=== PATIENT | male | born 1970 | race Caucasian/White ===

== ENCOUNTER 2018-06-12 04:14 | Emergency (ER) | payer SELFPAY ==
[~2018-06-12] VITALS: Ht 167.6 cm; Wt 72.6 kg
[~2018-06-12 04:14] MED LIST: CHOL20007 PO; CLON0.3T PO; ESCI20TA PO; LEVE500T22 PO; LOSA-46 PO; NIFE60TA59 PO
[2018-06-12 04:20] VITALS: BP 120/80
== END 2018-06-12 07:45 | disposition left against medical advice (07) ==
LOC: EDBD 04:14 → ER 04:16
DX: R07.9 Chest pain, unspecified (principal); Z53.21 Procedure and treatment not carried out due to patient leaving prior to being seen by health care provider
CPT/HCPCS: 71045; 93005

== ENCOUNTER 2018-06-25 07:27 | Inpatient (IN) | payer SELFPAY ==
[~2018-06-25] VITALS: Ht 167.6 cm; Wt 73.5 kg
[2018-06-25 08:02] LABS: Basophils # (auto) 0.1 uL; Basophils % (auto) 0.4 % (0.0-2.0); Eosinophils # (auto) 0.2 uL; Eosinophils % (auto) 1.2 % (0.0-7.0); Hematocrit 32.2 % (41.0-53.0); Hemoglobin 11.1 g/dL (13.5-17.5); Lymphocytes # (auto) 0.6 uL; Lymphocytes % (auto) 3.9 % (10.0-50.0); Mean Corpuscular Hemoglobin 29.5 pg (28.0-32.0); Mean Corpuscular Hgb Conc. 34.4 g/dL (32.0-36.0); Mean Corpuscular Volume 85.9 fL (80.0-100.0); Monocytes # (auto) 0.6 uL; Monocytes % (auto) 3.4 % (0.0-12.0); Neutrophils # (auto) 14.9 uL; Neutrophils % (auto) 91.1 % (37.0-80.0); Platelet Count (auto) 358 10^3/uL (140-450); Red Blood Cells 3.75 10^6/uL (4.5-5.90); Red Cell Distribution Width 14.4 % (11.8-14.3); White Blood Cell 16.4 10^3/uL (4.4-10.8)
[2018-06-25] MEDS ORDERED: SODIUM CHLORIDE 0.9% 1,000 ML IV ONE (08:10)
[2018-06-25] MEDS ORDERED: ASPirin 81 mg TAB PO ONE (08:15)
[2018-06-25 08:23] LABS: Albumin 3.2 g/dL (3.4-5.0); Calcium 8.8 mg/dL (8.5-10.1); Magnesium 1.9 mg/dL (1.6-2.6); Potassium 3.4 mmol/L (3.5-5.1)
[2018-06-25 08:28] LABS: BUN/Creatinine Ratio 14.7; Bilirubin, Total 1.3 mg/dL (0.2-1.0); Total Protein 7.2 g/dL (6.4-8.2)
[2018-06-25] MEDS ORDERED: cloNIDine HCL 0.1 MG TAB PO ONE (08:30)
[2018-06-25 08:59] LABS: INR 1.01 (0.9-1.15); Partial Thromboplastin Time 29.2 sec (23.78-33.04); Prothrombin Time 10.8 sec (9.27-12.13)
[2018-06-25] MEDS ORDERED: POTASSIUM EFFERVESENT TAB 25 MEQ PO ONE (09:00)
[2018-06-25] MEDS ORDERED: FUROSEMIDE 40 MG/4 ML VIAL IV ONE (10:00)
[2018-06-25] MEDS ORDERED: LABETALOL HCL 5 MG/ML ML 20ML VIAL IV ONE (10:00)
[2018-06-25] MEDS ORDERED: hydrALAZINE HCL 20 MG/ML VL ONE (10:11)
[2018-06-25] MEDS ORDERED: hydrALAZINE HCL 20 MG/ML VL IV ONE ×2 (10:15→13:45)
[2018-06-25 10:53] LABS: Urine Bacteria FEW /hpf (None Seen); Urine Blood TRACE /uL (Negative); Urine WBC 1 /hpf (0 - 3)
[2018-06-25] MEDS ORDERED: methylPREDNISolone SOD SUCC 125 MG/2 ML VL IV ONE (11:00)
[2018-06-25] MEDS ORDERED: cefTRIAXone 1GM/50ML D5W 50 ML IV SCH (11:00)
[2018-06-25] MEDS: NICOTINE 21MG/24 HR TOPICAL PATCH TD SCH (11:00)
[2018-06-25] MEDS ORDERED: NITROGLYCERIN 0.4MG/HR TOPICAL PATCH TD SCH (11:00)
[2018-06-25] MEDS ORDERED: NITROGLYCERIN 0.4 MG SL TAB SL PRN (11:00)
[2018-06-25] MEDS ORDERED: MORPHINE SULFATE 4 MG/ML SYR/VIAL IV PRN ×2 (11:00→11:15)
[2018-06-25] MEDS: FUROSEMIDE 40 MG/4 ML VIAL IV SCH (11:00)
[2018-06-25] MEDS ORDERED: LOSARTAN POTASSIUM 50 MG TAB PO ONE (11:15)
[2018-06-25] MEDS ORDERED: ONDANSETRON HCL 4 MG/2 ML VIAL IV PRN (11:15)
[2018-06-25] MEDS ORDERED: ALPRAZolam 0.25 MG TAB PO PRN (11:15)
[2018-06-25] MEDS ORDERED: METOPROLOL TARTRATE 25 MG TAB PO ONE (11:15)
[2018-06-25] MEDS ORDERED: NICOTINE 21MG/24 HR TOPICAL PATCH TD ONE (11:15)
[2018-06-25] MEDS ORDERED: LEVETIRACETAM 500 MG TAB PO ONE (11:15)
[2018-06-25] MEDS: ASPirin 81 mg TAB PO ONE ×2 (11:32→11:34)
[2018-06-25] MEDS: IPRATROPIUM BROM 0.5 MG/2.5ML INH SOL NEB SCH ×2 (11:49→18:34)
[2018-06-25] MEDS: ALBUTEROL SULF 2.5 MG/0.5ML(0.5%) NEB SOLN NEB SCH ×2 (11:49→18:34)
[2018-06-25] MEDS: AZITHROMYCIN 500MG/ 250ML 250 ML IV SCH (12:04)
[2018-06-25] MEDS: amLODIPine BESYLATE 5 MG TAB PO SCH (14:02)
[2018-06-25] MEDS: cloNIDine HCL 0.1 MG TAB PO SCH ×3 (14:02→21:35)
[2018-06-25] MEDS: hydrALAZINE HCL 20 MG/ML VL IV SCH ×2 (14:02→18:09)
[2018-06-25] MEDS ORDERED: ENOXAPARIN SOD 60 MG/0.6 ML SYRINGE SC ONE (15:45)
[2018-06-25] MEDS: HYDROcodone-ACET 5/325MG TAB PO PRN (16:33)
[2018-06-25 17:10] VITALS: BP 162/112
[2018-06-25] MEDS: BUDESONIDE (INHALATION) 0.5 MG/2 ML NEB NEB SCH (18:34)
[2018-06-25 20:25] VITALS: BP 164/99
--- NOTE | 2018-06-25 20:25 | NUR ---
Telemetry admit from ER NICOLAS EVANS admitted to Telemetry unit after SBAR received. Patient oriented to DELVIN GODWIN RN primary RN, unit, room, bed, and unit policies regarding patient care and visiting hours. Patient now on continuous telemetry monitoring, tele box # 7 and telemetry reading on arrival to unit is SR-ST BBB. Patient placed on bedside oxygen, weighed by bedscale and encouraged to call if they need something. All questions and concerns addressed, patient verbalized understanding. Note:
[2018-06-25] MEDS: LEVETIRACETAM 500 MG TAB PO SCH (21:34)
[2018-06-25] MEDS: METOPROLOL TARTRATE 25 MG TAB PO SCH (21:34)
[2018-06-25 22:16] VITALS: BP 164/99
[2018-06-26] MEDS: hydrALAZINE HCL 20 MG/ML VL IV SCH ×4 (02:00→13:09)
[2018-06-26 05:00] VITALS: BP 155/63
[2018-06-26] MEDS: cloNIDine HCL 0.1 MG TAB PO SCH ×3 (05:25→21:46)
[2018-06-26] MEDS: HYDROcodone-ACET 5/325MG TAB PO PRN ×3 (05:46→21:46)
[2018-06-26] MEDS: IPRATROPIUM BROM 0.5 MG/2.5ML INH SOL NEB SCH ×5 (06:25→19:48)
[2018-06-26] MEDS: BUDESONIDE (INHALATION) 0.5 MG/2 ML NEB NEB SCH ×2 (06:25→19:48)
[2018-06-26] MEDS: ALBUTEROL SULF 2.5 MG/0.5ML(0.5%) NEB SOLN NEB SCH ×5 (06:25→19:48)
[2018-06-26 06:30] LABS: Basophils # (auto) 0 uL; Basophils % (auto) 0.2 % (0.0-2.0); Eosinophils # (auto) 0 uL; Hematocrit 32.2 % (41.0-53.0); Hemoglobin 10.9 g/dL (13.5-17.5); Lymphocytes # (auto) 1.1 uL; Mean Corpuscular Hemoglobin 29.1 pg (28.0-32.0); Mean Corpuscular Hgb Conc. 33.8 g/dL (32.0-36.0); Mean Corpuscular Volume 86.2 fL (80.0-100.0); Monocytes # (auto) 0.5 uL; Monocytes % (auto) 3.5 % (0.0-12.0); Neutrophils # (auto) 12.5 uL; Neutrophils % (auto) 88.3 % (37.0-80.0); Platelet Count (auto) 346 10^3/uL (140-450); Red Blood Cells 3.74 10^6/uL (4.5-5.90); Red Cell Distribution Width 14.5 % (11.8-14.3); White Blood Cell 14.2 10^3/uL (4.4-10.8)
[2018-06-26 06:47] LABS: Calcium 8.4 mg/dL (8.5-10.1); Potassium 3.4 mmol/L (3.5-5.1)
--- NOTE | 2018-06-26 07:40 | NUR ---
Patient walking from the bathroom going back to bed.
[2018-06-26 08:11] VITALS: BP 153/90
--- NOTE | 2018-06-26 08:15 | NUR ---
Patient stated he wants to walk on the hallway. Patient is an active smoker as per report. Patient has Nicoderm patch on the left upper arm. Asked the patient if he's going downstairs to smoke. Patient denies he's going downstairs to smoke, stated he will walk on the hallway only and will go back to his room.
[2018-06-26] MEDS: AZITHROMYCIN 500MG/ 250ML 250 ML IV SCH (09:34)
[2018-06-26] MEDS: FUROSEMIDE 40 MG/4 ML VIAL IV SCH (09:37)
[2018-06-26] MEDS: NICOTINE 21MG/24 HR TOPICAL PATCH TD SCH (09:37)
[2018-06-26] MEDS: ASPirin 81 mg TAB PO SCH (09:38)
[2018-06-26] MEDS: LEVETIRACETAM 500 MG TAB PO SCH ×2 (09:39→21:45)
[2018-06-26] MEDS: amLODIPine BESYLATE 5 MG TAB PO SCH (09:39)
[2018-06-26] MEDS: METOPROLOL TARTRATE 25 MG TAB PO SCH ×2 (09:39→21:46)
[2018-06-26] MEDS ORDERED: ESCITALOPRAM OXALATE 20 MG PO SCH (10:00)
[2018-06-26] MEDS ORDERED: LOSARTAN POTASSIUM 50 MG TAB PO SCH ×2 (10:00)
[2018-06-26 11:51] VITALS: BP 141/81
--- NOTE | 2018-06-26 12:04 | NUR ---
Patient stated he has headache. [place] not due at this time. No orders for Tylenol. Will call the Hospitalist for orders.
--- NOTE | 2018-06-26 12:05 | NUR ---
Paged Dr. Dennis. Waiting for MD to call back.
[2018-06-26] MEDS: cefTRIAXone 1GM/50ML D5W 50 ML IV SCH (12:08)
--- NOTE | 2018-06-26 12:57 | NUR ---
Paged Dr. Dennis again.
--- NOTE | 2018-06-26 13:00 | NUR ---
Dr. Dennis called back. made aware patient complained of headache but there's no order for Tylenol; [place] 5/325 PO Q8 and not due at this time. Dr. Dennis said she will have to see the patient first. No new orders given.
[2018-06-26] MEDS ORDERED: NIFEdipine ER 30 MG TAB PO ONE (13:15)
--- NOTE | 2018-06-26 13:55 | NUR ---
Patient stated his headache at 6/10 pain level at this time. [place] 5/325 PO given as ordered.
[2018-06-26] MEDS: hydrALAZINE HCL 25 MG TAB PO SCH ×2 (14:00→21:45)
--- NOTE | 2018-06-26 14:10 | NUR ---
POM endorsed to Pharmacy.
[2018-06-26 16:59] VITALS: BP 168/104
--- NOTE | 2018-06-26 19:15 | NUR ---
Opening Shift Note Received report from Alexia BETTS. Assumed care of patient, awake and alert. No S/S of distress/SOB or pain. Instructed on POC and to call for assist PRN, will continue to monitor for changes Q1hr and PRN.
[2018-06-26 20:00] VITALS: BP 160/97
[2018-06-26 22:00] VITALS: BP 160/97
--- NOTE | 2018-06-27 01:53 | NUR ---
Rounds Patient is sleeping at this time, no distress or pain, will continue care.
[2018-06-27 04:58] LABS: Basophils # (auto) 0.1 uL; Basophils % (auto) 0.7 % (0.0-2.0); Eosinophils # (auto) 0 uL; Eosinophils % (auto) 0.3 % (0.0-7.0); Hematocrit 32.9 % (41.0-53.0); Hemoglobin 11.2 g/dL (13.5-17.5); Lymphocytes # (auto) 1.7 uL; Lymphocytes % (auto) 17.4 % (10.0-50.0); Mean Corpuscular Hemoglobin 29.3 pg (28.0-32.0); Mean Corpuscular Hgb Conc. 33.9 g/dL (32.0-36.0); Mean Corpuscular Volume 86.6 fL (80.0-100.0); Monocytes # (auto) 0.5 uL; Monocytes % (auto) 4.7 % (0.0-12.0); Neutrophils # (auto) 7.6 uL; Neutrophils % (auto) 76.9 % (37.0-80.0); Platelet Count (auto) 391 10^3/uL (140-450); Red Cell Distribution Width 14.6 % (11.8-14.3); White Blood Cell 9.9 10^3/uL (4.4-10.8)
[2018-06-27 05:00] VITALS: BP 164/114
[2018-06-27 05:15] LABS: BUN/Creatinine Ratio 14.3; Magnesium 1.8 mg/dL (1.6-2.6); Potassium 3.1 mmol/L (3.5-5.1)
[2018-06-27] MEDS: cloNIDine HCL 0.1 MG TAB PO SCH ×2 (05:48→14:40)
[2018-06-27] MEDS: hydrALAZINE HCL 25 MG TAB PO SCH ×2 (05:48→14:39)
[2018-06-27] MEDS: ALBUTEROL SULF 2.5 MG/0.5ML(0.5%) NEB SOLN NEB SCH ×3 (07:09→14:43)
[2018-06-27] MEDS: BUDESONIDE (INHALATION) 0.5 MG/2 ML NEB NEB SCH (07:09)
[2018-06-27] MEDS: IPRATROPIUM BROM 0.5 MG/2.5ML INH SOL NEB SCH ×3 (07:09→14:43)
--- NOTE | 2018-06-27 07:30 | NUR ---
Opening Shift Note Assuming care of patient. Patient is resting in bed. Patient shows no signs or symptoms of distress. Patient in bed with bed locked and lowered with side rails up x2. Instructed patient on the plan of care and to call for assistance as needed. Will continue to monitor. Call light within reach.
[2018-06-27 08:00] VITALS: BP 162/106
--- NOTE | 2018-06-27 08:05 | NUR ---
Re: Off Unit Patient is being taken off unit at this time for VQ scan. Awaiting return.
--- NOTE | 2018-06-27 09:40 | NUR ---
Re: Back on Unit Patient is back on unit at this time.
[2018-06-27] MEDS ORDERED: NIFEdipine ER 30 MG TAB PO SCH (10:00)
[2018-06-27] MEDS ORDERED: CITALOPRAM HYDROBR 20 MG TAB PO SCH (10:00)
[2018-06-27] MEDS: NICOTINE 21MG/24 HR TOPICAL PATCH TD SCH (10:45)
[2018-06-27] MEDS: ASPirin 81 mg TAB PO SCH (10:45)
[2018-06-27] MEDS: LEVETIRACETAM 500 MG TAB PO SCH (10:45)
--- NOTE | 2018-06-27 10:52 | NUR ---
Re: Nephro Consult Spoke to Dr. Worrell at this time. Dr. Worrell states that he does not take new patients at our hospital right now. Lakeshia, Woven Paper Hat Mender, is aware.
--- NOTE | 2018-06-27 10:55 | NUR ---
Re: Nephro Consult Lakeshia, Assistant Center Manager, has called the nephro consult in again to another doctor at this time. Awaiting callback.
[2018-06-27] MEDS ORDERED: POTASSIUM CHL 20 Meq TABLET PO ONE (11:45)
[2018-06-27] MEDS ORDERED: MAGNESIUM SULFATE 1GM/100ML 100 ML IV ONE (11:45)
[2018-06-27] MEDS ORDERED: CARVEDILOL 12.5 MG TAB PO ONE (11:45)
[2018-06-27] MEDS ORDERED: LABETALOL HCL 5 MG/ML ML 20ML VIAL IV PRN (11:45)
[2018-06-27 12:00] VITALS: BP 182/119
--- NOTE | 2018-06-27 12:20 | NUR ---
IV insertion IV access obtained, via clean sterile technique by inserting 22 gauge catheter at back of left forearm. IV secured properly. No trauma to site. Patient tolerated well.
--- NOTE | 2018-06-27 12:30 | NUR ---
Re: Nephro Consult Dr. Parra called at this time. Discussed plan of care with this RN and gave orders. Orders to be put in and executed.
[2018-06-27] MEDS: cefTRIAXone 1GM/50ML D5W 50 ML IV SCH (13:30)
[2018-06-27 14:11] LABS: Urine Bacteria NONE SEEN /hpf (None Seen); Urine Blood TRACE /uL (Negative); Urine WBC 1 /hpf (0 - 3)
[2018-06-27 14:21] LABS: Alcohol, Urine < 3.0 mg/dL (0-5); Amphetamine Screen, Urine NEGATIVE (NEGATIVE); Barbiturate Scree,Urine NEGATIVE (NEGATIVE); Benzodiazephine Screen, Urine NEGATIVE (NEGATIVE); Cannabinoid Screen, Urine POSITIVE (NEGATIVE); Cocaine Screen, Urine NEGATIVE (NEGATIVE); Opiate Scree,Urine NEGATIVE (NEGATIVE); Phencyclidine Screen, Urine NEGATIVE (NEGATIVE)
[2018-06-27] MEDS: FUROSEMIDE 40 MG/4 ML VIAL IV SCH (14:30)
[2018-06-27] MEDS: AZITHROMYCIN 500MG/ 250ML 250 ML IV SCH (14:31)
[2018-06-27 17:00] VITALS: BP 126/86
--- NOTE | 2018-06-27 17:18 | NUR ---
Patient is requesting to go home at this time. Dr. Dennis is unable to be paged at this time.
--- NOTE | 2018-06-27 18:27 | NUR ---
Re: ANDREW Patient is going home against medical advice at this time. Patient had a family emergency and wants to be home with his family.
[2018-06-27] MEDS ORDERED: CARVEDILOL 12.5 MG TAB PO SCH (22:00)
[2018-06-28] MEDS ORDERED: amLODIPine BESYLATE 5 MG TAB PO SCH (10:00)
== END 2018-06-27 19:07 | disposition left against medical advice (07) | DRG 871 ==
LOC: ER 07:27 → OVERFLOW 11:01 → TELE-WESTW 20:23
PROVIDERS: ADMIT Nurse Practitioner Acute Care; ATTEND Internal Medicine
DX: A41.9 Sepsis, unspecified organism (principal); I50.43 Acute on chronic combined systolic (congestive) and diastolic (congestive) heart failure; J96.00 Acute respiratory failure, unspecified whether with hypoxia or hypercapnia; J69.0 Pneumonitis due to inhalation of food and vomit; I13.0 Hypertensive heart and chronic kidney disease with heart failure and stage 1 through stage 4 chronic kidney disease, or unspecified chronic kidney disease; E44.1 Mild protein-calorie malnutrition; J44.0 Chronic obstructive pulmonary disease with (acute) lower respiratory infection; J44.1 Chronic obstructive pulmonary disease with (acute) exacerbation; I24.9 Acute ischemic heart disease, unspecified; N18.4 Chronic kidney disease, stage 4 (severe); E11.22 Type 2 diabetes mellitus with diabetic chronic kidney disease; E11.21 Type 2 diabetes mellitus with diabetic nephropathy; E78.5 Hyperlipidemia, unspecified; E87.6 Hypokalemia; F17.210 Nicotine dependence, cigarettes, uncomplicated; G40.909 Epilepsy, unspecified, not intractable, without status epilepticus; I35.1 Nonrheumatic aortic (valve) insufficiency; Z53.21 Procedure and treatment not carried out due to patient leaving prior to being seen by health care provider; F32.9 Major depressive disorder, single episode, unspecified; F19.10 Other psychoactive substance abuse, uncomplicated; I25.10 Atherosclerotic heart disease of native coronary artery without angina pectoris; Z80.0 Family history of malignant neoplasm of digestive organs; Z80.1 Family history of malignant neoplasm of trachea, bronchus and lung; Z91.19 Patient's noncompliance with other medical treatment and regimen; Z79.899 Other long term (current) drug therapy; Z79.84 Long term (current) use of oral hypoglycemic drugs; Z90.49 Acquired absence of other specified parts of digestive tract; Z68.26 Body mass index [BMI] 26.0-26.9, adult
CPT/HCPCS: 36415; 71045; 71046; 78582; 80048; 80053; 80307; 81001; 82570; 83036; 83605; 83735; 83880; 84156; 84443; 84484; 85025; 85379; 85610; 85730; 87040; 93005; 94640; 96361; 96365; 96375; 99291; G0378; J0696; J2405

== ENCOUNTER 2018-06-30 10:26 | Inpatient (IN) | payer SELFPAY ==
[~2018-06-30] VITALS: Ht 167.6 cm; Wt 68.5 kg
[2018-06-30 11:03] LABS: Urine Bacteria FEW /hpf (None Seen); Urine Blood Negative /uL (Negative); Urine Mucus FEW (None Seen); Urine Specific Gravity 1.017 (1.001-1.035); Urine WBC 5 /hpf (0 - 3)
[2018-06-30 11:13] LABS: Alcohol, Urine < 3.0 mg/dL (0-5); Amphetamine Screen, Urine NEGATIVE (NEGATIVE); Barbiturate Scree,Urine NEGATIVE (NEGATIVE); Benzodiazephine Screen, Urine NEGATIVE (NEGATIVE); Cannabinoid Screen, Urine POSITIVE (NEGATIVE); Cocaine Screen, Urine NEGATIVE (NEGATIVE); Opiate Scree,Urine NEGATIVE (NEGATIVE); Phencyclidine Screen, Urine NEGATIVE (NEGATIVE)
[2018-06-30 11:28] LABS: Basophils # (auto) 0.1 uL; Basophils % (auto) 0.9 % (0.0-2.0); Eosinophils # (auto) 0.4 uL; Hematocrit 36.9 % (41.0-53.0); Hemoglobin 12.4 g/dL (13.5-17.5); Lymphocytes # (auto) 1.3 uL; Lymphocytes % (auto) 14.6 % (10.0-50.0); Mean Corpuscular Hemoglobin 29.3 pg (28.0-32.0); Mean Corpuscular Hgb Conc. 33.7 g/dL (32.0-36.0); Monocytes # (auto) 0.5 uL; Monocytes % (auto) 5.6 % (0.0-12.0); Neutrophils # (auto) 6.7 uL; Neutrophils % (auto) 74.9 % (37.0-80.0); Nucleated Red Blood Cells % 0.1 %; Platelet Count (auto) 443 10^3/uL (140-450); Red Blood Cells 4.24 10^6/uL (4.5-5.90); Red Cell Distribution Width 14.1 % (11.8-14.3); White Blood Cell 8.9 10^3/uL (4.4-10.8)
[2018-06-30 14:24] LABS: Albumin 3.3 g/dL (3.4-5.0); Calcium 8.8 mg/dL (8.5-10.1); Magnesium 1.8 mg/dL (1.6-2.6); Potassium 3.5 mmol/L (3.5-5.1)
[2018-06-30 14:29] LABS: BUN/Creatinine Ratio 13.3; Bilirubin, Total 0.8 mg/dL (0.2-1.0); Total Protein 7.2 g/dL (6.4-8.2)
[2018-06-30] MEDS ORDERED: ENOXAPARIN SOD 80 MG/0.8ML SYRINGE SC ONE (15:45)
[2018-06-30] MEDS ORDERED: FUROSEMIDE 40 MG/4 ML VIAL IV ONE (15:45)
[2018-06-30] MEDS ORDERED: NITROGLYCERIN 0.4 MG SL TAB SL PRN (17:00)
[2018-06-30] MEDS ORDERED: IPRATROPIUM BROM 0.5 MG/2.5ML INH SOL NEB PRN (17:00)
[2018-06-30] MEDS ORDERED: ALBUTEROL SULF 2.5 MG/0.5ML(0.5%) NEB SOLN NEB PRN (17:00)
[2018-06-30] MEDS ORDERED: MORPHINE SULF INJ 2 MG/ML SYRINGE 1ML IV PRN (17:00)
[2018-06-30] MEDS ORDERED: methylPREDNISolone SOD SUCC 125 MG/2 ML VL IV ONE (17:00)
[2018-06-30] MEDS ORDERED: ONDANSETRON HCL 4 MG/2 ML VIAL IV PRN (17:00)
[2018-06-30] MEDS ORDERED: ISOSORBIDE MONONITRATE 60 MG TAB PO ONE (17:00)
[2018-06-30] MEDS ORDERED: MORPHINE SULFATE 4 MG/ML SYR/VIAL IV PRN (17:00)
[2018-06-30] MEDS ORDERED: cloNIDine HCL 0.1 MG TAB PO ONE (17:15)
[2018-06-30] MEDS ORDERED: hydrALAZINE HCL 20 MG/ML VL IV ONE (17:15)
--- NOTE | 2018-06-30 18:40 | NUR ---
PT CHECKED FOR PRN TX. TX NOT INDICATED AT THIS TIME. NO SOB OR ACUTE DISTRESS NOTED. PT IS AWARE TO CALL IF TX IS NEED OR BECOMES SOB. HR 63 RR 18 99% ON ROOM AIR. B/S CLEAR.
[2018-06-30 20:24] VITALS: BP 152/91
[2018-06-30] MEDS: ATORVASTATIN 20 MG TAB PO SCH (21:35)
[2018-06-30] MEDS: DOCUSATE SOD 100 MG CAP PO SCH (21:35)
[2018-06-30] MEDS: LEVETIRACETAM 500 MG TAB PO SCH (21:35)
[2018-06-30] MEDS: hydrALAZINE HCL 20 MG/ML VL IV PRN (21:36)
[2018-06-30] MEDS: HYDROcodone-ACET 5/325MG TAB PO PRN (21:36)
[2018-06-30] MEDS ORDERED: NIFEdipine ER 30 MG TAB PO ONE (23:45)
[2018-06-30] MEDS ORDERED: TEMAZEPAM 15 MG CAP PO PRN (23:45)
[2018-07-01] VITALS (8 sets, daily range): BP systolic 139–169; BP diastolic 84–110
--- NOTE | 2018-07-01 00:30 | NUR ---
Telemetry admit from ER NICOLAS EVANS admitted to Telemetry unit after SBAR received. Patient oriented to Antonia Donald, primary RN, unit, room, bed, and unit policies regarding patient care and visiting hours. Patient now on continuous telemetry monitoring, tele box # 30 and telemetry reading on arrival to unit is 83 . Patient placed on bedside oxygen, weighed by bedscale and encouraged to call if they need something. All questions and concerns addressed, patient verbalized understanding. Note:
[2018-07-01] MEDS: HYDROcodone-ACET 5/325MG TAB PO PRN ×3 (03:17→21:25)
[2018-07-01 05:47] LABS: Basophils # (auto) 0 uL; Basophils % (auto) 0.2 % (0.0-2.0); Eosinophils # (auto) 0 uL; Hemoglobin 12.7 g/dL (13.5-17.5); Lymphocytes # (auto) 0.6 uL; Monocytes # (auto) 0.1 uL; Neutrophils % (auto) 93.2 % (37.0-80.0)
[2018-07-01 05:52] LABS: Lymphocytes % (auto) 5.5 % (10.0-50.0); Mean Corpuscular Hemoglobin 29.8 pg (28.0-32.0); Mean Corpuscular Hgb Conc. 35.3 g/dL (32.0-36.0); Mean Corpuscular Volume 84.7 fL (80.0-100.0); Monocytes % (auto) 1.1 % (0.0-12.0); Neutrophils # (auto) 10.1 uL; Platelet Count (auto) 474 10^3/uL (140-450); Red Blood Cells 4.26 10^6/uL (4.5-5.90); Red Cell Distribution Width 14.4 % (11.8-14.3); White Blood Cell 10.8 10^3/uL (4.4-10.8)
[2018-07-01 06:19] LABS: Calcium 8.9 mg/dL (8.5-10.1); Potassium 3.1 mmol/L (3.5-5.1)
[2018-07-01] MEDS ORDERED: cefTRIAXone 1GM/50ML D5W 50 ML IV SCH (09:00)
[2018-07-01] MEDS: LOSARTAN POTASSIUM 50 MG TAB PO SCH (09:37)
[2018-07-01] MEDS: DOCUSATE SOD 100 MG CAP PO SCH ×2 (09:37→21:24)
[2018-07-01] MEDS: ISOSORBIDE MONONITRATE 60 MG TAB PO SCH (09:38)
[2018-07-01] MEDS: LEVETIRACETAM 500 MG TAB PO SCH ×2 (09:38→21:25)
[2018-07-01] MEDS: FUROSEMIDE 20 MG TAB PO SCH (09:38)
[2018-07-01] MEDS: NIFEdipine ER 30 MG TAB PO SCH (09:41)
[2018-07-01] MEDS ORDERED: HCTZ 25 MG TAB PO SCH (10:00)
[2018-07-01] MEDS: hydrALAZINE HCL 20 MG/ML VL IV PRN (13:37)
[2018-07-01] MEDS ORDERED: POTASSIUM CHL 10 Meq TABLET PO ONE (14:00)
[2018-07-01] MEDS ORDERED: cloNIDine HCL 0.1 MG TAB PO PRN (14:00)
[2018-07-01] MEDS ORDERED: hydrALAZINE HCL 25 MG TAB PO ONE (14:00)
[2018-07-01] MEDS: CITALOPRAM HYDROBR 20 MG TAB PO SCH (14:09)
[2018-07-01] MEDS: ASPirin 81 mg TAB PO SCH (14:09)
[2018-07-01] MEDS: ACETAMINOPHEN 500 MG TAB PO PRN (15:47)
--- NOTE | 2018-07-01 15:47 | NUR ---
MEDICATED FOR HEADACHE 02/26 WITH MORPHINE ALSO GAVE TYLENOL. HE SAID HE HATED THE HOSPITAL AND IT GIVES HIM A HEADACHE.
--- NOTE | 2018-07-01 16:27 | NUR ---
DR COATES AT BEDSIDE FOR CARDIOLOGY CONSULT. WILL PLACE ORDER FOR CARDIOLITE STRESS TEST TOMORROW.
--- NOTE | 2018-07-01 19:15 | NUR ---
assumed care, pt. awake, no c/o pain, no sob.
--- NOTE | 2018-07-01 19:24 | NUR ---
PT CHECKED FOR PRN TX. PT IS RESTING COMFORTABLY WITH NO DISTRESS NOTED. B/S CLEAR. HR 92 POX 94% ON ROOM AIR. RR 20. PT AWARE TO CALL IF TX NEEDED.
[2018-07-01] MEDS: hydrALAZINE HCL 25 MG TAB PO SCH (21:24)
[2018-07-01] MEDS: ATORVASTATIN 20 MG TAB PO SCH (21:25)
[2018-07-02 05:34] VITALS: BP 144/85
[2018-07-02] MEDS: hydrALAZINE HCL 25 MG TAB PO SCH ×3 (05:47→21:18)
[2018-07-02 06:31] LABS: Calcium 8.4 mg/dL (8.5-10.1); Potassium 3.1 mmol/L (3.5-5.1)
[2018-07-02 06:33] LABS: BUN/Creatinine Ratio 14.1
--- NOTE | 2018-07-02 07:30 | NUR ---
Opening Shift Note Assumed care of patient, awake and alert. No S/S of distress/SOB or pain reported at this time. Instructed on POC and to call for assist PRN, call light within reach, IV to left AC patent and benign, will continue to monitor for changes Q1hr and PRN.
[2018-07-02 08:00] VITALS: BP 121/145
[2018-07-02] MEDS ORDERED: ADENOSINE 57 MG in GIVE UN-DILUTED 0 ML IV STA (08:22)
--- NOTE | 2018-07-02 08:34 | NUR ---
Respiratory note: ASSESSED PT FOR PRN TX PT WAS AWAKE AND ALERT NO RESP DISTRESS NOTED. HR 94%,RR 16, SPO2 98% ON ROOM AIR. BS ARE CLEAR. PT KNOWS TO HAVE RT PAGED IF TX IS NEEDED.
[2018-07-02 08:37] VITALS: BP 121/145
--- NOTE | 2018-07-02 09:05 | NUR ---
PT OFF UNIT TAKEN TO STRESS TEST, TAKEN VIA WHEELCHAIR, NO DISTRESS NOTED, CONT CARE
[2018-07-02] MEDS ORDERED: cloNIDine HCL 0.1 MG TAB ONE (10:19)
[2018-07-02] MEDS ORDERED: cloNIDine HCL 0.1 MG TAB PO ONE (10:30)
--- NOTE | 2018-07-02 11:08 | NUR ---
STRESS TEST UNABLE TO DO STRESS TEST AT THIS TIME. BLOOD PRESSURE UPON ARRIVAL TO STRESS TEST WAS 209/139 WITH A HEART RATE OF 75. DR AGUERO NOTIFIED AND VERBAL ORDER FOR CLONIDINE 0.2 PO WAS OBTAINED. PATIENT WAS MEDICATED AT 1030. AFTER 45 MIN BLOOD PRESSURE WAS STILL TOO HIGH FOR STRESS TEST. BLOOD PRESSURE 189/125 AND HEART RATE 80. PATIENT TAKEN BACK TO ROOM. STRESS TEST WILL BE ATTEMPTED TOMORROW AGAIN. RN MICHAEL NOTIFIED OF NEED FOR FULL DOSE OF BLOOD PRESSURE MEDIATIONS TO BE GIVEN IN THE MORNING PRIOR TEST. PRIMARY NURSE MICHAEL AND DR AGUERO AWARE OF PLAN OF CARE.
--- NOTE | 2018-07-02 11:15 | NUR ---
PT BACK FROM STRESS TEST/TEST NOT COMPLETED NO DISTRESS NOTED, VS 200/136, P 88, RR 16, O2 ON RA 96%, NO CURRENT C/O CP, SOB OR ANY OTHER DISCOMFORT, WILL ADMINISTER MORNING BP MEDS, CONT CARE
[2018-07-02] MEDS: POTASSIUM CHL 10 Meq TABLET PO SCH (11:23)
[2018-07-02] MEDS: LEVETIRACETAM 500 MG TAB PO SCH ×2 (11:23→21:19)
[2018-07-02] MEDS: FUROSEMIDE 20 MG TAB PO SCH (11:23)
[2018-07-02] MEDS: DOCUSATE SOD 100 MG CAP PO SCH ×2 (11:23→21:19)
[2018-07-02] MEDS: NIFEdipine ER 30 MG TAB PO SCH (11:24)
[2018-07-02] MEDS: ISOSORBIDE MONONITRATE 60 MG TAB PO SCH (11:24)
[2018-07-02] MEDS: ASPirin 81 mg TAB PO SCH (11:25)
[2018-07-02] MEDS: LOSARTAN POTASSIUM 50 MG TAB PO SCH (11:25)
[2018-07-02] MEDS: CITALOPRAM HYDROBR 20 MG TAB PO SCH (11:25)
[2018-07-02] MEDS ORDERED: POTASSIUM CHL 20 Meq TABLET PO ONE (12:15)
[2018-07-02 13:00] VITALS: BP 200/136
--- NOTE | 2018-07-02 13:30 | NUR ---
BP 153/98, P 71 NO DISTRESS NOTED, CONT CARE
[2018-07-02 17:00] VITALS: BP 144/101
[2018-07-02] MEDS: HYDROcodone-ACET 5/325MG TAB PO PRN (17:55)
--- NOTE | 2018-07-02 19:10 | NUR ---
ASSUMED CARE, PT. AWAKE, NO C/O PAIN, NO SOB.
[2018-07-02] MEDS: cloNIDine HCL 0.1 MG TAB PO SCH (21:19)
[2018-07-02] MEDS: ATORVASTATIN 20 MG TAB PO SCH (21:19)
[2018-07-02] MEDS: ACETAMINOPHEN 500 MG TAB PO PRN (21:20)
[2018-07-02 22:00] VITALS: BP 149/102
--- NOTE | 2018-07-03 04:10 | NUR ---
REPORT RECEIVED FROM AJ BETTS, WILL ASSUME PT CARE.
--- NOTE | 2018-07-03 04:16 | NUR ---
report given to tad tompkins.
[2018-07-03 05:42] VITALS: BP 127/84
[2018-07-03] MEDS: hydrALAZINE HCL 25 MG TAB PO SCH (05:50)
[2018-07-03 06:48] LABS: BUN/Creatinine Ratio 15.4; Calcium 8.7 mg/dL (8.5-10.1); Potassium 3.2 mmol/L (3.5-5.1)
[2018-07-03] MEDS: ASPirin 81 mg TAB PO SCH (07:54)
[2018-07-03] MEDS: LOSARTAN POTASSIUM 50 MG TAB PO SCH (07:55)
[2018-07-03] MEDS: POTASSIUM CHL 10 Meq TABLET PO SCH (07:55)
[2018-07-03] MEDS: ISOSORBIDE MONONITRATE 60 MG TAB PO SCH (07:55)
[2018-07-03] MEDS: CITALOPRAM HYDROBR 20 MG TAB PO SCH (07:55)
[2018-07-03] MEDS: FUROSEMIDE 20 MG TAB PO SCH (07:55)
[2018-07-03] MEDS: DOCUSATE SOD 100 MG CAP PO SCH (07:56)
[2018-07-03] MEDS: cloNIDine HCL 0.1 MG TAB PO SCH (07:56)
[2018-07-03] MEDS: NIFEdipine ER 30 MG TAB PO SCH (07:57)
--- NOTE | 2018-07-03 07:59 | NUR ---
MORNING BP 159/112 P 75 NO DISTRESS NOTED, MEDICATION ADMINISTERED EARLY PRIOR STRESS TEST PER MD ORDER, CONT CARE
[2018-07-03 08:00] VITALS: BP 143/104
[2018-07-03 08:48] VITALS: BP 134/98
[2018-07-03 09:00] VITALS: BP 143/104
--- NOTE | 2018-07-03 09:48 | NUR ---
PT BACK FROM STRESS TEST NO DISTRESS NOTED AT THIS TIME
[2018-07-03] MEDS: LEVETIRACETAM 500 MG TAB PO SCH (11:47)
[2018-07-03 13:00] VITALS: BP 131/87
--- NOTE | 2018-07-03 15:00 | NUR ---
VS 136/83, P 95 NO DISTRESS NOTED
--- NOTE | 2018-07-03 15:06 | NUR ---
AT BEDSIDE DR GAR AT BEDSIDE, DISCUSSING POC WITH PT, PT CURRENTLY REQUESTING TO LEAVE AMA, REFUSING TO WAIT FOR STRESS TEST RESULTS, CALLED STRESS LAB AND SPOKE WITH MICHELLE, SHE SATES SHE SPOKE WITH DR MRAI TO READ RESULTS AND CLEARANCE FOR DISCHARGE, PT STATES " IF MY RESULTS ARE POSITIVE, I WILL COME BACK OUTPATIENT, BUT THERE IS NO NEED FOR ME TO BE HERE, I FEEL FINE", MD WILL DISCHARGE PT, CONT CARE
--- NOTE | 2018-07-03 16:30 | NUR ---
DISCHARGE Discharge instructions given as ordered. Encourage to follow up with PMD as instructed. Patient is to follow up with Dr Becker in [place], office out of area, patient will make an appointment, also voucher coupon was provided. All questions and concerns addressed. Patient verbalized understanding. Medication reconciliation form completed and copy given to patient. IV removed with catheter intact, pressure dressing applied. Telemetry unit returned to ICU. Patient refused wheelchair and was accompanied with all personal belongings. No distress noted at time of departure.
== END 2018-07-03 16:30 | disposition home or self-care (01) | DRG 291 ==
LOC: ER 10:28 → TELE 17:21 → TELE-WESTW 23:34
PROVIDERS: ADMIT Nurse Practitioner Acute Care; ATTEND Internal Medicine
DX: I13.0 Hypertensive heart and chronic kidney disease with heart failure and stage 1 through stage 4 chronic kidney disease, or unspecified chronic kidney disease (principal); I50.33 Acute on chronic diastolic (congestive) heart failure; E44.1 Mild protein-calorie malnutrition; I16.9 Hypertensive crisis, unspecified; J44.1 Chronic obstructive pulmonary disease with (acute) exacerbation; N39.0 Urinary tract infection, site not specified; Z68.24 Body mass index [BMI] 24.0-24.9, adult; E78.5 Hyperlipidemia, unspecified; F17.210 Nicotine dependence, cigarettes, uncomplicated; I35.1 Nonrheumatic aortic (valve) insufficiency; M06.9 Rheumatoid arthritis, unspecified; N18.3 Chronic kidney disease, stage 3 (moderate); R56.9 Unspecified convulsions; Z79.899 Other long term (current) drug therapy; Z80.0 Family history of malignant neoplasm of digestive organs; Z80.1 Family history of malignant neoplasm of trachea, bronchus and lung; Z91.19 Patient's noncompliance with other medical treatment and regimen; Z90.49 Acquired absence of other specified parts of digestive tract
CPT/HCPCS: 36415; 71045; 78452; 80048; 80053; 80307; 81001; 83735; 83880; 84484; 85025; 87081; 93005; 93017; 93306; 94640; 96372; 96374; G0378; J0153; J0696; J2405